=== PATIENT | male | born 1930 | race Caucasian/White ===

== ENCOUNTER 2017-06-16 23:07 | Inpatient (IN) ==
--- NOTE | 2017-06-16 23:47 | Emergency Department Note ---
ED Disposition Clinical Impression: Colitis, Colon cancer metastasized to multiple sites, Renal insufficiency Anemia Qualifiers: Anemia type: unspecified type Qualified Code(s): D64.9 - Anemia, unspecified Disposition: Admitted as Observation Condition on Discharge: Serious Referrals: Jennifer العراقي MD [Primary Care Provider] - - Critical Care Critical Care Time: No Attestation: On 06/16/17, the high probability of a clinically significant, sudden or life threatening deterioration of the following system(s) required my full and direct attention, intervention and personal management. The time I documented below is in addition to time spent performing reported procedures but includes the following listed in this critical care notation. Medical Decision Making - Medical Records Medical records reviewed: Yes: I reviewed the patient's medical records. - Kush Inquiry Pt receiving controlled substance: No Vital Signs: 06/16/17 23:23 06/16/17 23:32 06/17/17 00:55 Temperature 97.9 F Temperature Source Oral Pulse Rate [Right Radial] 99 H 81 Respiratory Rate 20 18 Blood Pressure [Right Arm] 72/39 75/40 75/39 Blood Pressure Mean [Right Arm] 50 51 51 Blood Pressure Source [Right Arm] Manual Cuff/ Auscultation 02 Sat by Pulse Oximetry 95 93 L Oxygen Delivery Method Room Air - Lab Data Lab results reviewed: Yes: I reviewed the patient's lab results. Lab Results 06/17/17 00:00: WBC 12.6 H, RBC 3.81 L, Hgb 9.9 L, Hct 31.4 L, MCV 82.5, MCH 26.0 L, MCHC 31.5 L, RDW 15.7, Plt Count 360, MPV 7.3 L, Neut % (Auto) 90.3 H, Lymph % (Auto) 4.2 L, [place] % (Auto) 3.6, Eos % (Auto) 1.7, Baso % (Auto) 0.1, Neut # (Auto) 11.4 H, Lymph # (Auto) 0.5 L, [place] # (Auto) 0.5, Eos # (Auto) 0.2 , Baso # (Auto) 0.0, Total Counted 100, Neutrophils % (Manual) 88 H, Lymphocytes % (Manual) 9 L, Monocytes % (Manual) 2, Basophils % (Manual) 1.0, Platelet Estimate Normal, RBC Morphology Not Reportable, Anisocytosis 1+ 06/17/17 00:00: Sodium 134 L, Potassium 5.3 H, Chloride 97 L, Carbon Dioxide 25 , Anion Gap 17.3 H, BUN 41 H, Creatinine 2.68 H, Estimated Creat Clear 17, Estimated GFR 23 L, Est GFR ( Amer) 28 L, Glucose 207 H, Calcium 8.9, Total Bilirubin 1.0, AST 69 H, ALT 22, Alkaline Phosphatase 411 H, Total Creatine Kinase 172, CK-MB (CK-2) 0.5, CK-MB (CK-2) Rel Index 0.3, Troponin I < 0.02, Total Protein 7.1, Albumin 2.2 L, Globulin 4.9 H, Albumin/Globulin Ratio 0.4 L, Amylase 54, Lipase 41 L 06/17/17 00:25: TSH 3.48 Result diagrams: 06/17/17 00:00 06/17/17 00:00 Orders (Tests/Meds): ED MEDICATIONS Generic Name Dose Route Start Last Admin Trade Name Freq PRN Reason Stop Dose Admin Sodium Chloride 1,000 mls @ 999 mls/hr 06/17/17 02:15 06/17/17 02:03 Sod Chlor 0.9% 1000ml Bag IV 06/17/17 03:15 999 mls/hr .Q1H1M GUANAKO Administration Discontinued Medications Generic Name Dose Route Start Last Admin Trade Name Freq PRN Reason Stop Dose Admin Sodium Chloride 1,000 mls @ 999 mls/hr 06/16/17 23:45 06/16/17 23:38 Sod Chlor 0.9% 1000ml Bag IV 06/17/17 00:45 999 mls/hr .Q1H1M GUANAKO Administration Ondansetron HCl 4 mg 06/16/17 23:31 06/16/17 23:38 Zofran 4mg/2ml Vial IV 06/16/17 23:32 4 mg ONCE ONE Administration ORDERS Category Date Time Status CT abdomen pelvis wo con Routine Cat Scan 06/17/17 Taken Urinalysis and Microscopic Stat Lab 06/16/17 23:30 Ordered - CT Data CT Scan: Abdomen, Pelvis Time Received: 02:[address] Reviewed: Yes: I have viewed the radiologist's interpretation Preliminary Findings: Abnormal (see report ) - ECG Data Tracing #1 I reviewed this ECG and interpreted as documented below: Normal Sinus Rhythm: Yes Ischemic changes: non-specific ST-T wave changes - Physician Consults Physician Consulted: yumi Reason -: Admission Nausea/Vomiting/Diarrhea HPI - General Chief complaint: Abdominal Pain Stated complaint: vomiting,diarrhea,colon cancer,pain in lower abd Time Seen by Provider: 06/16/17 23:46 Mode of Arrival: Family Vehicle Source of Information: Patient, Relative Limitations: Physical Limitations Description of Symptoms (Recalled from ER Triage Doc. by RN): pt c/o abdominal pain, nausea/vomiting/diarrhea since about 0100 this morning. pt unable to keep any food or drink down. pt has mets colon ca to liver. pt is not receiving treatment at this time. - History of Present Illness HPI Narrative: pt with known metastatic colon cancer presents with abd pain with n/v and loose stool but no fever and no current chemotherapy MD complaint: nausea, vomiting, diarrhea, abdominal pain Onset (ago): day(s) Associated Abdominal Pain: Yes Location of pain: periumbilical Severity: moderate Context: other (metastatic cancer ) - Related Data Home Medications Medication Instructions Recorded Confirmed Aspirin [Aspir 81] 81 mg PO DAILY 02/11/17 06/16/17 Levothyroxine Sodium 50 mcg PO DAILY 02/11/17 06/16/17 [Levothyroxine 50mcg (0.05mg) Tab] Lisinopril/Hydrochlorothiazide 1 tab PO DAILY 02/11/17 06/16/17 [Lisinopril-Hctz 20-25 mg Tab] Omeprazole [Omeprazole 40mg 40 mg PO DAILY 02/11/17 06/16/17 Capsule] Oxycodone HCl/Acetaminophen 1 - 2 each PO Q4HP PRN 02/11/17 06/16/17 [Endocet 5-325 Tablet] Pravastatin Sodium [Pravachol 40mg 40 mg PO HS 02/11/17 06/16/17 Tablet] Tamsulosin HCl [Flomax] 0.4 mg PO HS 02/11/17 06/16/17 Potassium Chloride [Klor-Con 10mEq 20 meq PO DAILY 06/16/17 06/16/17 tab] Promethazine HCl [Phenergan 25mg 12.5 mg PO Q6HP PRN 06/16/17 06/16/17 tab] Allergies Allergy/AdvReac Type Severity Reaction Status Date / Time amoxicillin [AMOXICILLIN] Allergy Unknown Verified 04/29/17 13:46 cephalexin [From KEFLEX] Allergy Unknown UNKNOWN Verified 04/29/17 13:46 meloxicam [MELOXICAM] Allergy Unknown Verified 04/29/17 13:46 metoclopramide [From REGLAN] Allergy Unknown Verified 04/29/17 13:46 [facility] History I have reviewed the patient's past medical history: Yes Medical History: Reports:: Arrhythmia, Cancer, Hypertension Denies:: Anxiety, Depression, Diabetes Mellitus Type 1, Diabetes Mellitus Type 2, MRSA Other Medical History: Reports: Anemia, Cataracts, Chemotherapy Other Surgeries: Yes: Cancer Surgery, Colonoscopy, Colon Resection Amputation: No Fractures: No - Social History Smoking Status: Never smoker Alcohol Intake: never Substance Use Type: denies use Occupational Status: retired Housing: house Household Members: spouse - Psychiatric History Expresses thoughts of harming self/others: None Suicide Plan Description: No Plan Pschychiatric History:: Denies:: Anxiety, Attention Deficit Disorder, Bipolar Disorder, Depression, Eating Disorder, Post Traumatic Stress Disorder, Suicide Attempt, Psychiatric Treatment, Schizophrenia Family Hx:: Cancer, Hypertension ROS Obtained: Yes All systems reviewed & no additional complaints - Constitutional Constitutional: Denies fever(s), Reports poor appetite, Reports malaise, Reports weakness - Eyes Eyes: Denies change in vision - ENT Ears, Nose, Mouth, and Throat: Denies sore throat - Cardiovascular Cardiovascular: Denies chest pain - Respiratory Respiratory: Yes cough, No coughing up blood - Gastrointestinal Gastrointestingal: Reports: as per HPI, abdominal pain, diarrhea, nausea, vomiting - Genitourinary Male Genitourinary: Denies hematuria - Musculoskeletal Musculoskeletal: Denies joint pain, Denies joint swelling - Integumentary/Breasts Skin/Breast: Denies rash - Neurologic Neurologic: Denies seizure-like activity Physical Exam - General General appearance: in no apparent distress, lethargic - Head Head exam: normocephalic - Eye Eye exam: Present: PERRL, EOMI. Absent: scleral icterus - ENT ENT exam: Present: mucous membranes dry - Neck Neck exam: Present: trachea midline - Respiratory Respiratory exam: Present: other (dec bs ) - Cardiovascular Cardiovascular exam: Present: regular rate, systolic murmur - Abdominal Exam Abdominal exam: Present: soft, tenderness. Absent: guarding, rebound - Extremities Exam Extremities exam: Absent: calf tenderness - Neurological Exam Neurological exam: Present: alert, oriented X3, CN II-XII intact - Skin Skin exam: Absent: rash
[2017-06-17 00:15] LABS: Basophils % 0.1 % (0.1-2.0); Eosinophils # 0.2 K/mm3 (0.0-0.4); Eosinophils % 1.7 % (0.1-12.0); Hematocrit 31.4 % (42.0-52.0); Hemoglobin 9.9 g/dL (14.1-18.0); Lymphocytes # 0.5 K/mm3 (0.7-4.5); Lymphocytes % 4.2 K/mm3 (10-50); Mean Corpuscular HGB Conc 31.5 g/dL (31.8-35.4); Mean Corpuscular Volume 82.5 fl (80-94); Mean Platelet Volume 7.3 fl (7.4-10.4); Monocytes # 0.5 K/mm3 (0.1-1.0); Monocytes % 3.6 % (1.7-9.3); Neutrophils # 11.4 K/mm3 (1.8-7.8); Neutrophils % 90.3 % (37.0-80.0); Platelet Count 360 K/mm3 (142-424); Red Blood Count 3.81 M/mm3 (4.60-6.20); Red Cell Distribution Width 15.7 % (11.5-17.5); White Blood Count 12.6 K/mm3 (4.8-10.8)
[2017-06-17 00:59] LABS: Alanine Aminotransferase 22 U/L (12-78); Albumin Level 2.2 gm/dL (3.4-5.0); Albumin/Globulin Ratio 0.4 (1.1-1.8); Alkaline Phosphatase 411 U/L (46-116); Amylase 54 U/L (25-125); Anion Gap 17.3 mEq/L (5-15); Aspartate Amino Transferase 69 U/L (15-37); Blood Urea Nitrogen 41 mg/dL (7-18); Calcium 8.9 mg/dL (8.5-10.1); Carbon Dioxide 25 mmol/L (21.0-32.0); Chloride 97 mmol/L (98-107); Creatine Kinase 172 U/L (39-308); Globulin 4.9 gm/dl (1.3-3.2); Glucose 207 mg/dL (74-106); Lipase 41 u/L (73-393); Potassium 5.3 mmoL/L (3.5-5.1); Sodium 134 mmol/L (136-145); Total Protein,Serum 7.1 gm/dL (6.4-8.2)
[2017-06-17 01:12] LABS: Lymphocytes % 9 % (10-50); Monocytes % 2 % (2-9); Neutrophils % 88 % (42-76); Total Cells Counted 100
[2017-06-17 01:13] LABS: Anisocytosis 1+
[2017-06-17 07:10] LABS: Basophils % 0.1 % (0.1-2.0); Eosinophils % 0.3 % (0.1-12.0); Lymphocytes # 0.4 K/mm3 (0.7-4.5); Lymphocytes % 4.7 K/mm3 (10-50); Mean Corpuscular HGB Conc 31.1 g/dL (31.8-35.4); Mean Corpuscular Hemoglobin 26.1 pg (27.0-31.2); Mean Platelet Volume 7.1 fl (7.4-10.4); Monocytes # 0.3 K/mm3 (0.1-1.0); Monocytes % 3.7 % (1.7-9.3); Neutrophils # 8.3 K/mm3 (1.8-7.8); Neutrophils % 91.2 % (37.0-80.0); Platelet Count 291 K/mm3 (142-424); Red Cell Distribution Width 15.7 % (11.5-17.5)
[2017-06-17 07:15] LABS: Anion Gap 14.2 mEq/L (5-15); Potassium 5.2 mmoL/L (3.5-5.1)
[2017-06-17 07:28] LABS: Hematocrit 28.8 % (42.0-52.0); Hemoglobin 8.9 g/dL (14.1-18.0)
--- NOTE | 2017-06-17 08:05 | Pharmacy Consult Notes ---
[facility] Pharmacy VTE Monitoring - Patient Demographics Admission date: 06/17/17 Report Date: 06/17/17 Time: 08:05 Allergies/Adverse Reactions: Patient Allergies amoxicillin [AMOXICILLIN] Allergy (Unknown, Verified 04/29/17 13:46) cephalexin [From KEFLEX] Allergy (Unknown, Verified 04/29/17 13:46) UNKNOWN meloxicam [MELOXICAM] Allergy (Unknown, Verified 04/29/17 13:46) metoclopramide [From REGLAN] Allergy (Unknown, Verified 04/29/17 13:46) Height: 1.7 m Weight: 62.227 kg Patient Problems: Current Active Problems Colitis (Acute) Colon cancer metastasized to multiple sites (Acute) Anemia (Acute) Renal insufficiency (Acute) - VTE Risk Labs: VTE Related Lab Results Hgb 8.9 g/dL (14.1-18.0) L D 06/17/17 06:33 Hct 28.8 % (42.0-52.0) L 06/17/17 06:33 Plt Count 291 K/mm3 (142-424) 06/17/17 06:33 BUN 44 mg/dL (7-18) H 06/17/17 06:33 Creatinine 2.68 mg/dL (0.70-1.30) H 06/17/17 06:33 Estimated Creat Clear 18 mL/min (0-300) 06/17/17 06:33 VTE Score: 4 VTE Risk Level: Low Risk Clinical Trial Participant: No - Prophylaxis VTE Prophylaxis Ordered?: Yes Location of Applied Device: Not Applicable Pharmacologic Type: Enoxaparin
--- NOTE | 2017-06-17 09:28 | History & Physical Report ---
*Admission Date: 06/17/17 *Chief complaint: Abdominal pain with vomiting and diarrhea *History of present illness: Mr. Rodriguez is an 86-year-old male with a history of metastatic colon cancer who presented to [facility] last evening after experiencing vomiting and diarrhea with abdominal pain for the previous 2 days. He describes having 2 teeth extractions last week after which she was placed on an antibiotic. He does not know the name of the antibody began to feel poorly on and had vomiting and diarrhea the following day. He states yesterday he was able to retain some fluids. With evaluation in the emergency room CT of the abdomen and pelvis showed a colitis with masses in the liver and kidney. He was given IV boluses and started on IV antibiotics, pain medicine, anti-emetics. He was admitted for further evaluation and treatment. [facility] History Medical History: Reports:: Arrhythmia, Cancer, Hypertension, Lung Disease Denies:: Anxiety, Depression, Diabetes Mellitus Type 1, Diabetes Mellitus Type 2, MRSA Other Medical History: Reports: Anemia, Cataracts, Chemotherapy Other Surgeries: Yes: Cancer Surgery, Colonoscopy, Colon Resection Amputation: No Fractures: No - *Social History Educational Level: Completed High School Smoking Status: Never smoker Alcohol Intake: never Substance Use Type: denies use Occupational Status: retired Housing: house Household Members: spouse - Psychiatric History Expresses thoughts of harming self/others: None Suicide Plan Description: No Plan Pschychiatric History:: Denies:: Anxiety, Attention Deficit Disorder, Bipolar Disorder, Depression, Eating Disorder, Post Traumatic Stress Disorder, Suicide Attempt, Psychiatric Treatment, Schizophrenia *Family Hx:: Cancer, Hypertension Review of Systems - Constitutional Reports fatigue, Denies chills, Denies fever(s) - ENT Denies sore throat, Denies dizziness - *Cardiovascular Denies chest pain, Denies shortness of breath - *Respiratory Denies cough, Denies shortness of breath - *Gastrointestinal Reports abdominal pain, Reports change in stools (Diarrhea), Reports nausea, Reports vomiting, Denies coffee ground vomit, Denies constipation, Denies heartburn, Denies difficulty swallowing, Denies heartburn, Denies vomiting blood , Denies black, tarry stools - *Genitourinary Comments: Decrease in urinary output - *Musculoskeletal Reports muscle weakness, Denies body aches - *Neurologic Reports weakness, Denies seizure-like activity Meds Home Medications Medication Instructions Recorded Confirmed Type Aspirin [Aspir 81] 81 mg PO DAILY 02/11/17 06/17/17 History Levothyroxine Sodium 50 mcg PO DAILY 02/11/17 06/17/17 History [Levothyroxine 50mcg (0.05mg) Tab] Lisinopril/Hydrochlorothiazide 1 tab PO DAILY 02/11/17 06/17/17 History [Lisinopril-Hctz 20-25 mg Tab] Omeprazole [Omeprazole 40mg 40 mg PO DAILY 02/11/17 06/17/17 History Capsule] Oxycodone HCl/Acetaminophen 1 each PO TIDP PRN 02/11/17 06/17/17 History [Endocet 5-325 Tablet] Pravastatin Sodium [Pravachol 40mg 40 mg PO HS 02/11/17 06/17/17 History Tablet] Tamsulosin HCl [Flomax] 0.4 mg PO HS 02/11/17 06/17/17 History Potassium Chloride [Klor-Con 10mEq 20 meq PO DAILY 06/16/17 06/17/17 History tab] Promethazine HCl [Phenergan 25mg 12.5 mg PO Q6HP PRN 06/16/17 06/17/17 History tab] Allergies Allergy/AdvReac Type Severity Reaction Status Date / Time amoxicillin [AMOXICILLIN] Allergy Unknown Verified 04/29/17 13:46 cephalexin [From KEFLEX] Allergy Unknown UNKNOWN Verified 04/29/17 13:46 meloxicam [MELOXICAM] Allergy Unknown Verified 04/29/17 13:46 metoclopramide [From REGLAN] Allergy Unknown Verified 04/29/17 13:46 Exam Vital signs and Labs for Last 24 Hours: Temp Pulse Resp BP Pulse Ox 97.8 F 92 H 18 107/52 90 L 06/17/17 08:00 06/17/17 08:00 06/17/17 08:00 06/17/17 08:00 06/17/17 08:00 Laboratory Results - last 24 hr 06/17/17 00:00: WBC 12.6 H, RBC 3.81 L, Hgb 9.9 L, Hct 31.4 L, MCV 82.5, MCH 26.0 L, MCHC 31.5 L, RDW 15.7, Plt Count 360, MPV 7.3 L, Neut % (Auto) 90.3 H, Lymph % (Auto) 4.2 L, [place] % (Auto) 3.6, Eos % (Auto) 1.7, Baso % (Auto) 0.1, Neut # (Auto) 11.4 H, Lymph # (Auto) 0.5 L, [place] # (Auto) 0.5, Eos # (Auto) 0.2 , Baso # (Auto) 0.0, Total Counted 100, Neutrophils % (Manual) 88 H, Lymphocytes % (Manual) 9 L, Monocytes % (Manual) 2, Basophils % (Manual) 1.0, Platelet Estimate Normal, RBC Morphology Not Reportable, Anisocytosis 1+ 06/17/17 00:00: Sodium 134 L, Potassium 5.3 H, Chloride 97 L, Carbon Dioxide 25 , Anion Gap 17.3 H, BUN 41 H, Creatinine 2.68 H, Estimated Creat Clear 17, Estimated GFR 23 L, Est GFR ( Amer) 28 L, Glucose 207 H, Calcium 8.9, Total Bilirubin 1.0, AST 69 H, ALT 22, Alkaline Phosphatase 411 H, Total Creatine Kinase 172, CK-MB (CK-2) 0.5, CK-MB (CK-2) Rel Index 0.3, Troponin I < 0.02, Total Protein 7.1, Albumin 2.2 L, Globulin 4.9 H, Albumin/Globulin Ratio 0.4 L, Amylase 54, Lipase 41 L 06/17/17 00:25: TSH 3.48 06/17/17 02:45: Lactic Acid 2.4 H 06/17/17 06:33: WBC 9.0 D, RBC 3.40 L, Hgb 8.9 L D, Hct 28.8 L, MCV 84.0, MCH 26.1 L, MCHC 31.1 L, RDW 15.7, Plt Count 291, MPV 7.1 L, Neut % (Auto) 91.2 H, Lymph % (Auto) 4.7 L, [place] % (Auto) 3.7, Eos % (Auto) 0.3, Baso % (Auto) 0.1, Neut # (Auto) 8.3 H, Lymph # (Auto) 0.4 L, [place] # (Auto) 0.3, Eos # (Auto) 0.0, Baso # (Auto) 0.0 06/17/17 06:33: Sodium 137, Potassium 5.2 H, Chloride 102, Carbon Dioxide 26, Anion Gap 14.2, BUN 44 H, Creatinine 2.68 H, Estimated Creat Clear 18, Estimated GFR 23 L, Est GFR ( Amer) 28 L, Glucose 158 H D 06/17/17 06:33: Lactic Acid Fup @ 4Hr 1.9 I & O for Last 24 hours: Intake & Output 06/14/17 06/15/17 06/16/17 06/17/17 11:59 11:59 11:59 11:59 Intake Total 1999 Balance 1999 Weight 137 lb 3 oz Radiology Reports for the Last 24 Hours: 06/17/2017 CT of abdomen and pelvis IMPRESSION: 1. Progressive pulmonary metastasis. 2. Enlarging left hepatic lobe mass. 3. Suspect solid right renal mass or complex cyst at 3 cm 4. Colitis of the transverse and descending colon with fluid-filled loops of small bowel which may be related to enteritis or ileus with postsurgical changes. 5. Cholelithiasis versus a small stone in the cystic duct remnant - Constitutional no acute distress Comments: Awakened for exam. Lethargic - *Routine HEENT Exam Head: Present: normocephalic, atraumatic Eye: Present: PERRL ENT: Present: mucous membranes moist - *Routine Neck Exam Present: supple. Absent: carotid bruit, thyromegaly, tenderness - *Routine Respiratory Exam Present: CTA bilaterally (Anteriorly and posteriorly) - *Routine Cardiovascular Exam Present: RRR - *Routine Abdominal Exam Present: soft, normoactive bowel sounds, tenderness (In all left quadrants) - *Routine Extremities Exam Absent: edema, calf tenderness, tenderness - *Routine Neurological Exam Present: alert Lethargic. Answers all questions appropriately. H&P: Result - Labs Labs: Short CBC 06/17/17 06/17/17 Range/Units 00:00 06:33 WBC 12.6 H 9.0 D (4.8-10.8) K/mm3 Hgb 9.9 L 8.9 L D (14.1-18.0) g/dL Hct 31.4 L 28.8 L (42.0-52.0) % Plt Count 360 291 (142-424) K/mm3 [facility] 06/17/17 06/17/17 00:00 06:33 Sodium 134 L 137 Potassium 5.3 H 5.2 H Chloride 97 L 102 Carbon Dioxide 25 26 BUN 41 H 44 H Creatinine 2.68 H 2.68 H Glucose 207 H 158 H D Calcium 8.9 Cardiac Enzymes 06/17/17 Range/Units 00:00 Total Creatine Kinase 172 (39-308) U/L CK-MB (CK-2) 0.5 (0.0-3.6) ng/ml Troponin I < 0.02 (0.00-0.06) ng/ml Liver Function 06/17/17 Range/Units 00:00 Total Bilirubin 1.0 (0.2-1.0) mg/dL AST 69 H (15-37) U/L ALT 22 (12-78) U/L Alkaline Phosphatase 411 H (46-116) U/L Albumin 2.2 L (3.4-5.0) gm/dL Assessment and Plan - Assessment and plan all Dx Assessment and Plan for all problems:: IV fluids, antibiotics, antiemetics, and pain management.
[2017-06-17 12:55] LABS: Microscopic, Urine URINE MICROSCOPIC (MICROSCOPIC)
[2017-06-17 13:05] LABS: Appearance,Urine CLEAR (Clear); Bilirubin,Urine Negative (Negative); Blood, Urine Negative (Negative); Color,Urine Amber (Yellow); Glucose,Urine (UA) Negative (Negative); Ketones,Urine Negative (Negative); Leukocyte Esterase,Urine Negative (Negative); PH,Urine 5.5 (5.0-8.5); Protein,Urine 1+ (Negative)
[2017-06-17 13:39] LABS: Bacteria,Urine 3+ /lpf
[2017-06-17 13:46] LABS: WBC,Urine Occasional #/hpf (0-3)
--- NOTE | 2017-06-18 08:38 | Progress Note ---
Internal Medicine - PN: Subj *Date: 06/18/17 *Time: 08:34 Interval history: Patient states he is still having some abdominal pain today. It is located on the left side of the abdomen. He has still had diarrhea but it has been less. He denies any vomiting but is still nauseated off and on. He was able to rest last night. Exam Vital signs and Labs for Last 24 Hours: Temp Pulse Resp BP Pulse Ox 98.6 F 96 H 18 94/50 90 L 06/18/17 07:33 06/18/17 07:33 06/18/17 07:33 06/18/17 07:33 06/18/17 07:33 Laboratory Results - last 24 hr 06/16/17 12:45: Urine Color Rylee, Urine Appearance Clear, Urine pH 5.5, Ur Specific [place] 1.020, Urine Protein 1+, Urine Glucose (UA) Negative, Urine Ketones Negative, Urine Blood Negative, Urine Nitrate Negative, Urine Bilirubin Negative, Urine Urobilinogen 1.0, Ur Leukocyte Esterase Negative, Urine RBC None , Urine WBC Occasional, Ur Squamous Epith Cells None, Urine Bacteria 3+ I & O for Last 24 hours: Intake & Output 06/15/17 06/16/17 06/17/17 06/18/17 11:59 11:59 11:59 11:59 Intake Total 1999 Output Total 100 / 100 Balance 1999 / 191 Weight 137 lb 3 oz 137 lb 2.993 oz Microbiology Reports for the Last 24 Hours: Microbiology 06/16/17 12:45 Urine,Clean Catch Urine Culture - Preliminary 06/17/17 02:45 Blood Blood Culture - Preliminary NO GROWTH AFTER 24 HOURS 06/17/17 02:45 Blood Blood Culture - Preliminary NO GROWTH AFTER 24 HOURS - Constitutional no acute distress - *Routine Respiratory Exam Present: CTA bilaterally - *Routine Cardiovascular Exam Present: RRR - *Routine Abdominal Exam Present: soft, normoactive bowel sounds, tenderness (left side of abdomen) - *Routine Extremities Exam Absent: edema Assessment and Plan (1) Colitis Current visit: Yes Status: Acute Category: Medical Code(s): K52.9 - Noninfective gastroenteritis and colitis, unspecified (2) Anemia Current visit: Yes Status: Acute Qualifiers: Anemia type: unspecified type Qualified Code(s): D64.9 - Anemia, unspecified Category: Medical Code(s): D64.9 - Anemia, unspecified (3) Colon cancer metastasized to multiple sites Current visit: Yes Status: Acute Category: Medical Code(s): C18.9 - Malignant neoplasm of colon, unspecified (4) Renal insufficiency Current visit: Yes Status: Acute Category: Medical Code(s): N28.9 - Disorder of kidney and ureter, unspecified - Assessment and plan all Dx Assessment and Plan for all problems:: Patient's symptoms are improving. Will continue antibiotics and discuss further care with Dr. herzog. Will get repeat labs today as well as a diarrhea panel.
[2017-06-18 09:32] LABS: Eosinophils % 0.4 % (0.1-12.0); Hematocrit 26.7 % (42.0-52.0); Hemoglobin 8.4 g/dL (14.1-18.0); Lymphocytes # 0.4 K/mm3 (0.7-4.5); Lymphocytes % 3.6 K/mm3 (10-50); Mean Corpuscular HGB Conc 31.4 g/dL (31.8-35.4); Mean Corpuscular Hemoglobin 25.6 pg (27.0-31.2); Mean Corpuscular Volume 81.5 fl (80-94); Mean Platelet Volume 7.7 fl (7.4-10.4); Monocytes # 0.4 K/mm3 (0.1-1.0); Monocytes % 3.7 % (1.7-9.3); Neutrophils # 9.1 K/mm3 (1.8-7.8); Neutrophils % 92.2 % (37.0-80.0); Platelet Count 301 K/mm3 (142-424); Red Blood Count 3.27 M/mm3 (4.60-6.20); Red Cell Distribution Width 15.7 % (11.5-17.5); White Blood Count 9.9 K/mm3 (4.8-10.8)
[2017-06-18 10:58] LABS: Lymphocytes % 3 % (10-50); Monocytes % 4 % (2-9); Neutrophils % 91 % (42-76); Total Cells Counted 100
[2017-06-18 12:43] LABS: Albumin Level 1.7 gm/dL (3.4-5.0); Albumin/Globulin Ratio 0.4 (1.1-1.8); Anion Gap 18.9 mEq/L (5-15); Bilirubin,Total 0.5 mg/dL (0.2-1.0); Calcium 8.3 mg/dL (8.5-10.1); Globulin 4.5 gm/dl (1.3-3.2); Potassium 3.9 mmoL/L (3.5-5.1); Total Protein,Serum 6.2 gm/dL (6.4-8.2)
--- NOTE | 2017-06-19 08:39 | Progress Note ---
Internal Medicine - PN: Subj *Date: 06/19/17 *Time: 08:37 Interval history: Patient states he feels about the same as he did yesterday. He is still having diffuse abdominal pain and diarrhea. He slept off and on throughout the night. He does not feel like eating much this morning. Exam Vital signs and Labs for Last 24 Hours: Temp Pulse Resp BP Pulse Ox 98.3 F 89 18 155/59 94 L 06/19/17 04:00 06/19/17 04:00 06/19/17 04:00 06/19/17 04:00 06/19/17 04:00 Laboratory Results - last 24 hr 06/18/17 09:20: WBC 9.9, RBC 3.27 L, Hgb 8.4 L, Hct 26.7 L, MCV 81.5, MCH 25.6 L , MCHC 31.4 L, RDW 15.7, Plt Count 301, MPV 7.7, Neut % (Auto) 92.2 H, Lymph % ( Auto) 3.6 L, [place] % (Auto) 3.7, Eos % (Auto) 0.4, Baso % (Auto) 0.0 L, Neut # ( Auto) 9.1 H, Lymph # (Auto) 0.4 L, [place] # (Auto) 0.4, Eos # (Auto) 0.0, Baso # ( Auto) 0.0, Total Counted 100, Neutrophils % (Manual) 91 H, Band Neutrophils % 2.0, Lymphocytes % (Manual) 3 L, Monocytes % (Manual) 4, Platelet Estimate Normal 06/18/17 09:20: Sodium 139, Potassium 3.9 D, Chloride 103, Carbon Dioxide 21, Anion Gap 18.9 H, BUN 50 H, Creatinine 2.03 H D, Estimated Creat Clear 24, Estimated GFR 31 L, Est GFR ( Amer) 38 L D, Glucose 91, Calcium 8.3 L, Total Bilirubin 0.5, AST 81 H, ALT 26, Alkaline Phosphatase 312 H, Total Protein 6.2 L, Albumin 1.7 L D, Globulin 4.5 H, Albumin/Globulin Ratio 0.4 L 06/18/17 16:45: Stl Aeromonas (PCR) Not detected, Stl C. cayetanensis PCR Not detected, Stool Rotavirus (PCR) Not detected, Stl Adenov F 40/41 PCR Not detected, Stool Astrovirus (PCR) Not detected, Stool Campylobacter PCR Not detected, Stl C.difficile Tox PCR Not detected, Stool Cryptosporidium PCR Not detected, Stl E.coli Shiga Tox PCR Not detected, Stool E coli O157 PCR Not detected, Stl Enterotoxigenic E PCR Not detected, Stool EPEC (PCR) Not detected , Stool EAEC (PCR) Not detected, Stl E. histolytica PCR Not detected, Stool Giardia Lamblia PCR Not detected, Stool Salmonella PCR Not detected, Stool Sapovirus (PCR) Not detected, Stl P. shigelloides PCR Not detected, Stl Shigella /EIEC PCR Not detected, St Y.enterocolitica PCR Not detected, Stool Vibrio (PCR ) Not detected, Stl Vibrio cholerae PCR Not detected, Stl Norovirus GI/GII PCR Not detected I & O for Last 24 hours: Intake & Output 06/16/17 06/17/17 06/18/17 06/19/17 11:59 11:59 11:59 11:59 Intake Total 1999 2113 / 2113 1152 / 1152 Output Total 100 / 100 Balance 1999 1152 / 1152 Weight 137 lb 3 oz 137 lb 2.993 oz Microbiology Reports for the Last 24 Hours: Microbiology 06/16/17 12:45 Urine,Clean Catch Urine Culture - Final Multiple organisms, suggests contamination. 06/17/17 02:45 Blood Blood Culture - Preliminary NO GROWTH AFTER 48 HOURS 06/17/17 02:45 Blood Blood Culture - Preliminary NO GROWTH AFTER 48 HOURS - Constitutional no acute distress - *Routine Respiratory Exam Present: CTA bilaterally - *Routine Cardiovascular Exam Present: RRR - *Routine Abdominal Exam Present: soft, normoactive bowel sounds, tenderness (diffuse) - *Routine Extremities Exam Absent: edema Assessment and Plan (1) Colitis Current visit: Yes Status: Acute Category: Medical Code(s): K52.9 - Noninfective gastroenteritis and colitis, unspecified (2) Anemia Current visit: Yes Status: Acute Qualifiers: Anemia type: unspecified type Qualified Code(s): D64.9 - Anemia, unspecified Category: Medical Code(s): D64.9 - Anemia, unspecified (3) Colon cancer metastasized to multiple sites Current visit: Yes Status: Acute Category: Medical Code(s): C18.9 - Malignant neoplasm of colon, unspecified (4) Renal insufficiency Current visit: Yes Status: Acute Category: Medical Code(s): N28.9 - Disorder of kidney and ureter, unspecified - Assessment and plan all Dx Assessment and Plan for all problems:: Continue antibiotics. Patient's H&H continued to decrease yesterday. Will recheck today and discuss transfusion with Dr. العراقي.
[2017-06-19 09:14] LABS: Basophils % 0.1 % (0.1-2.0); Eosinophils % 0.4 % (0.1-12.0); Hematocrit 27.3 % (42.0-52.0); Hemoglobin 8.4 g/dL (14.1-18.0); Lymphocytes # 0.3 K/mm3 (0.7-4.5); Lymphocytes % 3.3 K/mm3 (10-50); Mean Corpuscular HGB Conc 30.6 g/dL (31.8-35.4); Mean Corpuscular Hemoglobin 25.5 pg (27.0-31.2); Mean Corpuscular Volume 83.1 fl (80-94); Mean Platelet Volume 7.2 fl (7.4-10.4); Monocytes # 0.5 K/mm3 (0.1-1.0); Monocytes % 4.7 % (1.7-9.3); Neutrophils # 9.4 K/mm3 (1.8-7.8); Neutrophils % 91.6 % (37.0-80.0); Platelet Count 265 K/mm3 (142-424); Red Blood Count 3.29 M/mm3 (4.60-6.20); Red Cell Distribution Width 15.6 % (11.5-17.5); White Blood Count 10.3 K/mm3 (4.8-10.8)
[2017-06-19 09:30] LABS: Albumin Level 1.5 gm/dL (3.4-5.0); Albumin/Globulin Ratio 0.4 (1.1-1.8); Anion Gap 11.2 mEq/L (5-15); Bilirubin,Total 0.4 mg/dL (0.2-1.0); Calcium 8.2 mg/dL (8.5-10.1); Globulin 3.9 gm/dl (1.3-3.2); Potassium 3.2 mmoL/L (3.5-5.1); Total Protein,Serum 5.4 gm/dL (6.4-8.2)
[2017-06-19 12:07] LABS: Lymphocytes % 2 % (10-50); Monocytes % 3 % (2-9); Neutrophils % 93 % (42-76); Total Cells Counted 100
[2017-06-19 12:08] LABS: Hypochromasia 1+
[2017-06-19 17:40] LABS: Hematocrit 32.4 % (42.0-52.0)
[2017-06-19 17:41] LABS: Hemoglobin 10.1 g/dL (14.1-18.0)
--- NOTE | 2017-06-20 08:59 | Progress Note ---
Internal Medicine - PN: Subj *Date: 06/20/17 *Time: 08:59 Exam Vital signs and Labs for Last 24 Hours: Temp Pulse Resp BP Pulse Ox 97.6 F 94 H 20 149/65 90 L 06/20/17 08:00 06/20/17 08:00 06/20/17 08:00 06/20/17 08:00 06/20/17 08:00 Laboratory Results - last 24 hr 06/19/17 08:50: WBC 10.3, RBC 3.29 L, Hgb 8.4 L, Hct 27.3 L, MCV 83.1, MCH 25.5 L, MCHC 30.6 L, RDW 15.6, Plt Count 265, MPV 7.2 L, Neut % (Auto) 91.6 H, Lymph % (Auto) 3.3 L, [place] % (Auto) 4.7, Eos % (Auto) 0.4, Baso % (Auto) 0.1, Neut # ( Auto) 9.4 H, Lymph # (Auto) 0.3 L, [place] # (Auto) 0.5, Eos # (Auto) 0.0, Baso # ( Auto) 0.0, Total Counted 100, Neutrophils % (Manual) 93 H, Band Neutrophils % 2.0, Lymphocytes % (Manual) 2 L, Monocytes % (Manual) 3, Platelet Estimate Slight increase, Hypochromasia 1+ 06/19/17 08:50: Sodium 139, Potassium 3.2 L, Chloride 106, Carbon Dioxide 25, Anion Gap 11.2, BUN 44 H, Creatinine 1.70 H, Estimated Creat Clear 28, Estimated GFR 39 L, Est GFR ( Amer) 47 L D, Glucose 190 H D, Calcium 8.2 L, Total Bilirubin 0.4, AST 49 H D, ALT 20, Alkaline Phosphatase 255 H, Total Protein 5.4 L, Albumin 1.5 L D, Globulin 3.9 H, Albumin/Globulin Ratio 0.4 L 06/19/17 09:05: Blood Type A Positive, Antibody Screen Negative, Crossmatch ([facility] ) See Detail 06/19/17 09:40: Blood Type Confirm A Positive 06/19/17 17:25: Hgb 10.1 L D, Hct 32.4 L I & O for Last 24 hours: Intake & Output 0506/18/17 06/19/17 06/20/17 23:59 23:59 23:59 23:59 Intake Total 3116 / 3116 1197 / 1197 2051 2975 / 2975 Output Total 100 / 100 450 / 450 Balance 3016 / 3016 1197 / 1197 2051 2525 / 2525 Weight 62.227 kg Microbiology Reports for the Last 24 Hours: Microbiology 06/17/17 02:45 Blood Blood Culture - Preliminary NO GROWTH AFTER 72 HOURS 06/17/17 02:45 Blood Blood Culture - Preliminary NO GROWTH AFTER 72 HOURS 06/16/17 12:45 Urine,Clean Catch Urine Culture - Final Multiple organisms, suggests contamination. Assessment and Plan (1) Colitis Current visit: Yes Status: Acute Category: Medical Code(s): K52.9 - Noninfective gastroenteritis and colitis, unspecified (2) Anemia Current visit: Yes Status: Acute Qualifiers: Qualified Code(s): D64.9 - Anemia, unspecified Category: Medical Code(s): D64.9 - Anemia, unspecified (3) Colon cancer metastasized to multiple sites Current visit: Yes Status: Acute Category: Medical Code(s): C18.9 - Malignant neoplasm of colon, unspecified (4) Renal insufficiency Current visit: Yes Status: Acute Category: Medical Code(s): N28.9 - Disorder of kidney and ureter, unspecified (5) Hypokalemia Current visit: Yes Status: Acute Category: Medical Code(s): E87.6 - Hypokalemia The patient's infection will respond to the chosen ABx?: Yes Is the patient receiving the right drug, dose, and route?: Yes Could a more targeted ABx be ordered?: No
--- NOTE | 2017-06-20 08:59 | Progress Note ---
Internal Medicine - PN: Subj *Date: 06/20/17 *Time: 08:55 Interval history: He seems better today. His hemoglobin has risen to above 10 with the transfusions. The plan is for him to go home to his daughter's. His primary care physician is Dr. Hailey العراقي in [place] Exam Vital signs and Labs for Last 24 Hours: Temp Pulse Resp BP Pulse Ox 97.6 F 94 H 20 149/65 90 L 06/20/17 08:00 06/20/17 08:00 06/20/17 08:00 06/20/17 08:00 06/20/17 08:00 Laboratory Results - last 24 hr 06/19/17 08:50: WBC 10.3, RBC 3.29 L, Hgb 8.4 L, Hct 27.3 L, MCV 83.1, MCH 25.5 L, MCHC 30.6 L, RDW 15.6, Plt Count 265, MPV 7.2 L, Neut % (Auto) 91.6 H, Lymph % (Auto) 3.3 L, [place] % (Auto) 4.7, Eos % (Auto) 0.4, Baso % (Auto) 0.1, Neut # ( Auto) 9.4 H, Lymph # (Auto) 0.3 L, [place] # (Auto) 0.5, Eos # (Auto) 0.0, Baso # ( Auto) 0.0, Total Counted 100, Neutrophils % (Manual) 93 H, Band Neutrophils % 2.0, Lymphocytes % (Manual) 2 L, Monocytes % (Manual) 3, Platelet Estimate Slight increase, Hypochromasia 1+ 06/19/17 08:50: Sodium 139, Potassium 3.2 L, Chloride 106, Carbon Dioxide 25, Anion Gap 11.2, BUN 44 H, Creatinine 1.70 H, Estimated Creat Clear 28, Estimated GFR 39 L, Est GFR ( Amer) 47 L D, Glucose 190 H D, Calcium 8.2 L, Total Bilirubin 0.4, AST 49 H D, ALT 20, Alkaline Phosphatase 255 H, Total Protein 5.4 L, Albumin 1.5 L D, Globulin 3.9 H, Albumin/Globulin Ratio 0.4 L 06/19/17 09:05: Blood Type A Positive, Antibody Screen Negative, Crossmatch ([place] ) See Detail 06/19/17 09:40: Blood Type Confirm A Positive 06/19/17 17:25: Hgb 10.1 L D, Hct 32.4 L Laboratory Tests 06/19/17 06/19/17 08:50 17:25 Hgb 10.1 L D Hct 32.4 L Sodium 139 Potassium 3.2 L BUN 44 H Creatinine 1.70 H I & O for Last 24 hours: Intake & Output 06/17/17 06/18/17 06/19/17 06/20/17 11:59 11:59 11:59 11:59 Intake Total 1999 2113 / 2113 1252 / 1252 3975 / 3975 Output Total 100 / 100 450 / 450 Balance 1999 1252 / 1252 3525 / 3525 Weight 137 lb 3 oz 137 lb 2.993 oz Microbiology Reports for the Last 24 Hours: Microbiology 06/17/17 02:45 Blood Blood Culture - Preliminary NO GROWTH AFTER 72 HOURS 06/17/17 02:45 Blood Blood Culture - Preliminary NO GROWTH AFTER 72 HOURS 06/16/17 12:45 Urine,Clean Catch Urine Culture - Final Multiple organisms, suggests contamination. - Constitutional no acute distress - *Routine HEENT Exam Head: Present: normocephalic ENT: Present: mucous membranes moist - *Routine Respiratory Exam Present: CTA bilaterally. Absent: respiratory distress - *Routine Cardiovascular Exam Present: RRR - *Routine Abdominal Exam Present: soft Comments: Left lower quadrant tenderness. - *Routine Extremities Exam Absent: edema Assessment and Plan (1) Colitis Current visit: Yes Status: Acute Category: Medical Code(s): K52.9 - Noninfective gastroenteritis and colitis, unspecified (2) Anemia Current visit: Yes Status: Acute Qualifiers: Anemia type: unspecified type Qualified Code(s): D64.9 - Anemia, unspecified Category: Medical Code(s): D64.9 - Anemia, unspecified (3) Colon cancer metastasized to multiple sites Current visit: Yes Status: Acute Category: Medical Code(s): C18.9 - Malignant neoplasm of colon, unspecified (4) Renal insufficiency Current visit: Yes Status: Acute Category: Medical Code(s): N28.9 - Disorder of kidney and ureter, unspecified (5) Hypokalemia Current visit: Yes Status: Acute Category: Medical Code(s): E87.6 - Hypokalemia - Assessment and plan all Dx Assessment and Plan for all problems:: Labs will be rechecked. The hypokalemia needs to be addressed prior to discharge. If we are able to discharge today he should follow-up with his primary care provider. Hospice has been in contact with the patient and will also be following him.
[2017-06-20 09:28] LABS: Eosinophils # 0.1 K/mm3 (0.0-0.4); Eosinophils % 0.4 % (0.1-12.0); Hemoglobin 10.1 g/dL (14.1-18.0); Lymphocytes # 0.5 K/mm3 (0.7-4.5); Lymphocytes % 4.4 K/mm3 (10-50); Mean Corpuscular HGB Conc 31.5 g/dL (31.8-35.4); Mean Corpuscular Volume 82.5 fl (80-94); Mean Platelet Volume 7.6 fl (7.4-10.4); Monocytes # 0.7 K/mm3 (0.1-1.0); Monocytes % 6.5 % (1.7-9.3); Neutrophils % 88.7 % (37.0-80.0); Platelet Count 254 K/mm3 (142-424); Red Blood Count 3.88 M/mm3 (4.60-6.20); Red Cell Distribution Width 15.7 % (11.5-17.5); White Blood Count 11.3 K/mm3 (4.8-10.8)
[2017-06-20 09:33] LABS: Anion Gap 11.9 mEq/L (5-15)
[2017-06-20 09:35] LABS: Potassium 2.9 mmoL/L (3.5-5.1)
[2017-06-20 09:46] LABS: Microscopic, Urine URINE MICROSCOPIC (MICROSCOPIC)
[2017-06-20 10:00] LABS: Appearance,Urine SL CLOUDY (Clear); Bilirubin,Urine Negative (Negative); Blood, Urine Negative (Negative); Color,Urine YELLOW (Yellow); Glucose,Urine (UA) Negative (Negative); Ketones,Urine Negative (Negative); Leukocyte Esterase,Urine TRACE (Negative); Protein,Urine TRACE (Negative); Urobilinogen,Urine 0.2 EU/dl (0.2)
[2017-06-20 10:12] LABS: Bacteria,Urine 4+ /lpf
[2017-06-20 12:12] LABS: Lymphocytes % 2 % (10-50); Neutrophils % 85 % (42-76); Total Cells Counted 100
[2017-06-20 12:15] LABS: Tear Drop Cells 1+
[2017-06-20 12:17] LABS: Hypochromasia 1+
[2017-06-21 05:20] LABS: Basophils % 0.1 % (0.1-2.0); Eosinophils # 0.1 K/mm3 (0.0-0.4); Eosinophils % 0.4 % (0.1-12.0); Hematocrit 32.6 % (42.0-52.0); Lymphocytes # 0.7 K/mm3 (0.7-4.5); Lymphocytes % 6.1 K/mm3 (10-50); Mean Corpuscular HGB Conc 30.8 g/dL (31.8-35.4); Mean Corpuscular Hemoglobin 25.5 pg (27.0-31.2); Mean Corpuscular Volume 82.9 fl (80-94); Mean Platelet Volume 7.3 fl (7.4-10.4); Monocytes # 1.3 K/mm3 (0.1-1.0); Monocytes % 10.7 % (1.7-9.3); Neutrophils # 10.1 K/mm3 (1.8-7.8); Neutrophils % 82.7 % (37.0-80.0); Platelet Count 269 K/mm3 (142-424); Red Blood Count 3.94 M/mm3 (4.60-6.20); Red Cell Distribution Width 15.9 % (11.5-17.5); White Blood Count 12.3 K/mm3 (4.8-10.8)
[2017-06-21 05:42] LABS: Anion Gap 11.3 mEq/L (5-15); Potassium 3.3 mmoL/L (3.5-5.1)
--- NOTE | 2017-06-21 10:51 | Progress Note ---
Internal Medicine - PN: Subj *Date: 06/21/17 *Time: 10:47 Interval history: The patient is stable and quite disappointed that he has not yet been discharged. His discharge was delayed yesterday due to hypokalemia (2.9). He received oral potassium yesterday and his potassium is improved this morning to 3.3. I am disturbed that his white blood cell count has elevated. His exam is good and his lungs sound clear. Chest x-ray will be rechecked. His abdomen is less tender than it was. I hope to be able to discharge him tomorrow for hospice care. Exam Vital signs and Labs for Last 24 Hours: Temp Pulse Resp BP Pulse Ox 97.8 F 79 18 132/67 90 L 06/21/17 07:44 06/21/17 07:44 06/21/17 07:44 06/21/17 07:44 06/21/17 09:00 Laboratory Results - last 24 hr 06/20/17 09:20: Total Counted 100, Neutrophils % (Manual) 85 H, Band Neutrophils % 10.0 H, Lymphocytes % (Manual) 2 L, Metamyelocytes % 3.0 H, Platelet Estimate Normal, Hypochromasia 1+, Tear Drop Cells 1+ 06/21/17 05:05: WBC 12.3 H, RBC 3.94 L, Hgb 10.0 L, Hct 32.6 L, MCV 82.9, MCH 25.5 L, MCHC 30.8 L, RDW 15.9, Plt Count 269, MPV 7.3 L, Neut % (Auto) 82.7 H, Lymph % (Auto) 6.1 L, [place] % (Auto) 10.7 H, Eos % (Auto) 0.4, Baso % (Auto) 0.1 , Neut # (Auto) 10.1 H, Lymph # (Auto) 0.7, [place] # (Auto) 1.3 H, Eos # (Auto) 0.1, Baso # (Auto) 0.0 06/21/17 05:05: Sodium 144, Potassium 3.3 L, Chloride 110 H, Carbon Dioxide 26, Anion Gap 11.3, BUN 23 H D, Creatinine 1.03 D, Estimated Creat Clear 47, Estimated GFR 69, Est GFR ( Amer) 83 D, Glucose 99 D Laboratory Tests 06/19/17 06/19/17 06/19/17 08:50 08:50 17:25 WBC 10.3 Hgb 8.4 L 10.1 L D Sodium 139 Potassium 3.2 L Chloride 106 06/20/17 06/20/17 06/21/17 09:20 09:20 05:05 WBC 11.3 H 12.3 H Hgb 10.1 L 10.0 L Sodium 141 Potassium 2.9 L* Chloride 107 06/21/17 05:05 WBC Hgb Sodium 144 Potassium 3.3 L Chloride 110 H I & O for Last 24 hours: Intake & Output 06/18/17 06/19/17 06/20/17 06/21/17 11:59 11:59 11:59 11:59 Intake Total 2113 / 2113 1252 / 1252 4075 / 4075 6726 / 6726 Output Total 100 / 100 450 / 450 1400 / 1400 Balance 2012 1252 / 1252 3625 / 3625 5326 / 5326 Weight 137 lb 2.993 oz Microbiology Reports for the Last 24 Hours: Microbiology 06/20/17 09:40 Urine,Clean Catch Urine Culture - Final Multiple organisms, suggests contamination. 06/17/17 02:45 Blood Blood Culture - Preliminary NO GROWTH AFTER 4 DAYS 06/17/17 02:45 Blood Blood Culture - Preliminary NO GROWTH AFTER 4 DAYS - Constitutional no acute distress - *Routine Respiratory Exam Present: diminished air movement. Absent: rales, respiratory distress, wheezes - *Routine Cardiovascular Exam Present: RRR - *Routine Extremities Exam Absent: edema Assessment and Plan (1) Colitis Current visit: Yes Status: Acute Category: Medical Code(s): K52.9 - Noninfective gastroenteritis and colitis, unspecified (2) Anemia Current visit: Yes Status: Acute Qualifiers: Anemia type: unspecified type Qualified Code(s): D64.9 - Anemia, unspecified Category: Medical Code(s): D64.9 - Anemia, unspecified (3) Colon cancer metastasized to multiple sites Current visit: Yes Status: Acute Category: Medical Code(s): C18.9 - Malignant neoplasm of colon, unspecified (4) Renal insufficiency Current visit: Yes Status: Acute Category: Medical Code(s): N28.9 - Disorder of kidney and ureter, unspecified (5) Hypokalemia Current visit: Yes Status: Acute Category: Medical Code(s): E87.6 - Hypokalemia - Assessment and plan all Dx Assessment and Plan for all problems:: Continue p.o. potassium. Continue antibiotics for now. Anticipate discharge in the morning.
[2017-06-22 05:42] LABS: Basophils % 0.1 % (0.1-2.0); Eosinophils # 0.1 K/mm3 (0.0-0.4); Eosinophils % 0.6 % (0.1-12.0); Hematocrit 32.6 % (42.0-52.0); Hemoglobin 10.3 g/dL (14.1-18.0); Lymphocytes # 0.9 K/mm3 (0.7-4.5); Lymphocytes % 6.5 K/mm3 (10-50); Mean Corpuscular HGB Conc 31.6 g/dL (31.8-35.4); Mean Corpuscular Hemoglobin 26.4 pg (27.0-31.2); Mean Corpuscular Volume 83.7 fl (80-94); Mean Platelet Volume 7.6 fl (7.4-10.4); Monocytes % 7.8 % (1.7-9.3); Neutrophils # 11.1 K/mm3 (1.8-7.8); Neutrophils % 84.9 % (37.0-80.0); Platelet Count 245 K/mm3 (142-424); Red Blood Count 3.89 M/mm3 (4.60-6.20); Red Cell Distribution Width 15.9 % (11.5-17.5); White Blood Count 13.1 K/mm3 (4.8-10.8)
[2017-06-22 05:48] LABS: Anion Gap 12.6 mEq/L (5-15); Potassium 3.6 mmoL/L (3.5-5.1)
--- NOTE | 2017-06-22 08:18 | Progress Note ---
Internal Medicine - PN: Subj *Date: 06/22/17 *Time: 08:51 Interval history: Patient states he slept a little last night. States he ate a little bit of breakfast. Stomach hurts a little and the nurses are bringing him a pain pill. He is voiding without difficulty. States he did not get out of bed yesterday because his daughter was sitting in his chair. Is anxious to go home. Exam Vital signs and Labs for Last 24 Hours: Temp Pulse Resp BP Pulse Ox 99.3 F 95 H 24 140/72 90 L 06/22/17 04:00 06/22/17 04:00 06/22/17 04:00 06/22/17 04:00 06/22/17 04:00 Laboratory Results - last 24 hr 06/22/17 05:20: WBC 13.1 H, RBC 3.89 L, Hgb 10.3 L, Hct 32.6 L, MCV 83.7, MCH 26.4 L, MCHC 31.6 L, RDW 15.9, Plt Count 245, MPV 7.6, Neut % (Auto) 84.9 H, Lymph % (Auto) 6.5 L, [place] % (Auto) 7.8, Eos % (Auto) 0.6, Baso % (Auto) 0.1, Neut # (Auto) 11.1 H, Lymph # (Auto) 0.9, [place] # (Auto) 1.0, Eos # (Auto) 0.1, Baso # (Auto) 0.0 06/22/17 05:20: Sodium 143, Potassium 3.6, Chloride 110 H, Carbon Dioxide 24, Anion Gap 12.6, BUN 20 H, Creatinine 0.93, Estimated Creat Clear 48, Estimated GFR 77, Est GFR ( Amer) 94, Glucose 84 I & O for Last 24 hours: Intake & Output 06/19/17 06/20/17 06/21/17 06/22/17 11:59 11:59 11:59 11:59 Intake Total 1252 / 1252 4075 / 4075 6826 / 6826 2794 / 2794 Output Total 450 / 450 1400 / 1400 300 / 300 Balance 1252 / 1252 3625 / 3625 5426 / 5426 2494 / 2494 Microbiology Reports for the Last 24 Hours: Microbiology 06/17/17 02:45 Blood Blood Culture - Final NO GROWTH AFTER 5 DAYS 06/17/17 02:45 Blood Blood Culture - Final NO GROWTH AFTER 5 DAYS 06/20/17 09:40 Urine,Clean Catch Urine Culture - Final Multiple organisms, suggests contamination. - Constitutional no acute distress Comments: Awakened for assessment. - *Routine Respiratory Exam Comments: Shallow respiratory effort. Diminished breath sounds posteriorly. Scattered crackles throughout. - *Routine Cardiovascular Exam Present: RRR - *Routine Abdominal Exam Present: soft, normoactive bowel sounds Comments: Mildly tender throughout. - *Routine Extremities Exam Absent: edema, calf tenderness - *Routine Neurological Exam Present: alert (Seems oriented.) Assessment and Plan (1) Colitis Current visit: Yes Status: Acute Category: Medical Code(s): K52.9 - Noninfective gastroenteritis and colitis, unspecified (2) Anemia Current visit: Yes Status: Acute Qualifiers: Anemia type: unspecified type Qualified Code(s): D64.9 - Anemia, unspecified Category: Medical Code(s): D64.9 - Anemia, unspecified (3) Colon cancer metastasized to multiple sites Current visit: Yes Status: Acute Category: Medical Code(s): C18.9 - Malignant neoplasm of colon, unspecified (4) Renal insufficiency Current visit: Yes Status: Acute Category: Medical Code(s): N28.9 - Disorder of kidney and ureter, unspecified (5) Hypokalemia Current visit: Yes Status: Acute Category: Medical Code(s): E87.6 - Hypokalemia - Assessment and plan all Dx Assessment and Plan for all problems:: Probably discharged to home today with services of Hospice.
--- NOTE | 2017-06-22 21:51 | Discharge Summary ---
General - General Admission date:: 06/17/17 Discharge date: 06/22/17 HPI HPI: Mr. Rodriguez is an 86-year-old male with a history of metastatic colon cancer who presented to [facility] last evening after experiencing vomiting and diarrhea with abdominal pain for the previous 2 days. He describes having 2 teeth extractions last week after which she was placed on an antibiotic. He does not know the name of the antibiotic. He began to feel poorly on 06/14/2017 and had vomiting and diarrhea the following day. He states yesterday he was able to retain some fluids. With evaluation in the emergency room CT of the abdomen and pelvis showed a colitis with masses in the liver and kidney. He was given IV boluses and started on IV antibiotics, pain medicine, anti-emetics. He was admitted for further evaluation and treatment. Hospital Course Hospital Course: The patient had to be transfused with 2 units of PRBC's. His diarrhea panel was negative. His potassium had to be replaced. His blood cultures were negative and his urine cx showed mixed organisms suggesting contamination. His symptoms improved on the abx. He was stable to be discharged home with his daughter and hospice will follow him. He will also need to f/u with his PCP Dr. Hailey العراقي. Objective Vital signs: Temp Pulse Resp BP Pulse Ox 98.6 F 105 H 22 134/66 91 L 06/22/17 08:00 06/22/17 08:00 06/22/17 08:00 06/22/17 08:00 06/22/17 08:00 Narrative: - Constitutional no acute distress Comments: Awakened for exam. Lethargic - *Routine HEENT Exam Head: Present: normocephalic, atraumatic Eye: Present: PERRL ENT: Present: mucous membranes moist - *Routine Neck Exam Present: supple. Absent: carotid bruit, thyromegaly, tenderness - *Routine Respiratory Exam Present: CTA bilaterally (Anteriorly and posteriorly) - *Routine Cardiovascular Exam Present: RRR - *Routine Abdominal Exam Present: soft, normoactive bowel sounds, tenderness (In all left quadrants) - *Routine Extremities Exam Absent: edema, calf tenderness, tenderness - *Routine Neurological Exam Present: alert Lethargic. Answers all questions appropriately. Results Labs on day of discharge: Labs from last 24 hours 06/22/17 06/22/17 05:20 05:20 WBC 13.1 H RBC 3.89 L Hgb 10.3 L Hct 32.6 L MCV 83.7 MCH 26.4 L MCHC 31.6 L RDW 15.9 Plt Count 245 MPV 7.6 Neut % (Auto) 84.9 H Lymph % (Auto) 6.5 L [place] % (Auto) 7.8 Eos % (Auto) 0.6 Baso % (Auto) 0.1 Neut # (Auto) 11.1 H Lymph # (Auto) 0.9 [place] # (Auto) 1.0 Eos # (Auto) 0.1 Baso # (Auto) 0.0 Sodium 143 Potassium 3.6 Chloride 110 H Carbon Dioxide 24 Anion Gap 12.6 BUN 20 H Creatinine 0.93 Estimated Creat Clear 48 Estimated GFR 77 Est GFR ( Amer) 94 Glucose 84 DS: Diagnosis - Discharge Diagnosis (1) Colitis Status: Acute (2) Anemia Status: Acute (3) Colon cancer metastasized to multiple sites Status: Acute (4) Renal insufficiency Status: Acute (5) Hypokalemia Status: Acute Discharge Plan - Patient Discharge Instructions Patient Instructions: Kidney Failure, Colon Cancer, Anemia, DI for Colitis - Follow up Plan Disposition: Hospice - Home Home Medications: Home Medications Medication Instructions Recorded Confirmed Type Aspirin [Aspir 81] 81 mg PO DAILY 02/11/17 06/17/17 History Levothyroxine Sodium 50 mcg PO DAILY 02/11/17 06/17/17 History [Levothyroxine 50mcg (0.05mg) Tab] Lisinopril/Hydrochlorothiazide 1 tab PO DAILY 02/11/17 06/17/17 History [Lisinopril-Hctz 20-25 mg Tab] Omeprazole [Omeprazole 40mg 40 mg PO DAILY 02/11/17 06/17/17 History Capsule] Oxycodone HCl/Acetaminophen 1 each PO TIDP PRN 02/11/17 06/17/17 History [Endocet 5-325 Tablet] Pravastatin Sodium [Pravachol 40mg 40 mg PO HS 02/11/17 06/17/17 History Tablet] Tamsulosin HCl [Flomax] 0.4 mg PO HS 02/11/17 06/17/17 History Potassium Chloride [Klor-Con 10mEq 20 meq PO DAILY 06/16/17 06/17/17 History tab] Promethazine HCl [Phenergan 25mg 12.5 mg PO Q6HP PRN 06/16/17 06/17/17 History tab] Prescriptions/Medication Reconciliation: New Azithromycin [Azithromycin 500mg Tab] 500 mg PO DAILY #6 tab Potassium Chloride [K-Tab ER 20 mEq] 20 meq PO BID #60 tab Continue Lisinopril/Hydrochlorothiazide [Lisinopril-Hctz 20-25 mg Tab] 1 tab PO DAILY Tamsulosin HCl [Flomax] 0.4 mg PO HS Pravastatin Sodium [Pravachol 40mg Tablet] 40 mg PO HS Oxycodone HCl/Acetaminophen [Endocet 5-325 Tablet] 1 each PO TIDP PRN PRN Reason: Moderate Pain Omeprazole [Omeprazole 40mg Capsule] 40 mg PO DAILY Aspirin [Aspir 81] 81 mg PO DAILY Potassium Chloride [Klor-Con 10mEq tab] 20 meq PO DAILY Promethazine HCl [Phenergan 25mg tab] 12.5 mg PO Q6HP PRN PRN Reason: Nausea And Vomiting Levothyroxine Sodium [Levothyroxine 50mcg (0.05mg) Tab] 50 mcg PO DAILY
== END 2017-06-22 14:00 | disposition hospice, home (50) ==
LOC: ER 23:07 → 2ND 23:07 → OBSVTOIN 06-17 02:52 → 2ND 06-17 03:16
PROVIDERS: ADMIT Family Medicine; ATTEND Family Medicine
CPT/HCPCS: 36415; 71010; 71045; 74176; 80048; 80053; 81001; 82150; 82550; 82553; 83605; 83690; 84443; 84484; 85007; 85014; 85018; 85025; 86850; 87040; 87086; 87507; 93005; 96365; 96366; 96367; 96375; 99285; J1335; J2405; P9016